=== PATIENT | male | born 1930 | race Caucasian/White ===

== ENCOUNTER → 2017-02-16 | Outpatient (CLI) | payer OTHER ==
[~2017-02-16] MED LIST: AMLO-110 PO; ASPI1CHW12 PO; CHOLCAP10 PO; FOLI1TAB7 PO; LANS15CA27 PO; LOSA100T33 PO; MAGNTAB4 PO; METH1CHW; MULT-506 PO; NITR0.4S UT; PYRI1TAB30; SOTA120T6 PO
--- NOTE | 2017-02-16 16:16 | DIAGNOSTIC IMAGING REPORT ---
MRI OF THE LUMBAR SPINE WITHOUT IV CONTRAST CLINICAL HISTORY: Chronic low back pain. Left lower extremity radiculopathy. COMPARISON STUDY: MRI of the lumbar spine dated 01/24/2015. TECHNIQUE: MRI of the lumbar spine is performed utilizing various T1 and T2-weighted sequences in the axial and sagittal planes. IV contrast was not administered for this examination. FINDINGS: Lumbar spine: Vertebral body height is maintained throughout the lumbar spine. There is minimal anterolisthesis at L3-L4 and L4-L5. Alignment is otherwise preserved. Small anterior osteophytes are seen throughout. Chronic degenerative endplate change is seen at L1-L2, L3-L4, L4-L5, and L5-S1. Mild endplate edema is present at L5-S1. The transverse processes appear intact. There are postoperative changes from laminectomy seen at L4. No destructive bony lesion is identified. There is no evidence of spondylolysis. Intervertebral discs: There is degenerative disc desiccation and loss of height seen throughout the lumbar spine. Loss of height is [id number] from L4-L5 through L5-S1. Spinal cord: The partially imaged spinal cord is normal in morphology and signal intensity. The conus medullaris terminates at the level of L1. The nerve roots of the cauda equina are normal in morphology. T12-L1: Unremarkable. L1-L2: There is a small posterior disc bulge eccentric to the left with annular fissure. The central canal appears patent. There is left-sided subarticular stenosis, with possible impingement on the exiting left L1 nerve root. Facet arthropathy causes minimal left neural foraminal stenosis. L2-L3: There is a small posterior disc bulge. The central canal and neural foramina appear patent. There is mild bilateral subarticular stenosis. Facet arthropathy is of no consequence. L3-L4: There is minimal posterior disc bulge. The central canal is clear. There is mild bilateral subarticular stenosis. Facet arthropathy causes mild right greater than left neural foraminal stenosis. L4-L5: There is a posterior disc bulge eccentric to the right with annular fissure. There is no significant acquired compromise of the central canal. There is moderate right-sided subarticular stenosis, with probable impingement on the exiting right L4 nerve root. Bulky facet arthropathy causes moderate left and mild right neural foraminal stenosis. L5-S1: There is minimal posterior disc bulge. The central canal is widely patent. Facet arthropathy causes mild left greater than right neural foraminal stenosis. Sacrum: Partially imaged sacrum is normal in morphology and signal intensity. 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 Soft tissues: Postoperative change is noted posteriorly at the level of L4. Mild fatty atrophy is observed in the paraspinous musculature. The partially imaged retroperitoneal structures are grossly unremarkable but incompletely assessed. IMPRESSION: 1. There is no large disc herniation or central canal stenosis. 2. Multilevel lumbosacral spondylosis as above. See discussion for detailed [id number] analysis. 3. Degenerative disc disease with multilevel degenerative endplate change as above. No destructive bony lesion is identified. 4. Postoperative changes from L4 laminectomy are noted and new from the 01/24/2015 examination. Dictated: 02/16/2017 3:46 PM Transcribed: 02/16/2017 4:15 PM Kit Electronically signed by: Brian Fu M.D. 02/16/2017 4:37 PM Dictated Date/Time: 02/16/2017 3:46 PM
== END | disposition home or self-care (01) ==
LOC: C.MRIBC 15:03
PROVIDERS: ATTEND Internal Medicine
DX: M48.06 Spinal stenosis, lumbar region (principal)

== ENCOUNTER → 2017-02-22 | Outpatient (CLI) | payer OTHER, BC | END | disposition home or self-care (01) | LOC: C.PATHSPEC 16:19 | PROVIDERS: ATTEND Dermatology | DX: L82.1 Other seborrheic keratosis (principal) ==

== ENCOUNTER → 2017-06-09 | Outpatient (CLI) | payer OTHER ==
[~2017-06-09] MED LIST changes: +LOSA100T26 PO; -LOSA100T33 PO
== END | disposition home or self-care (01) ==
LOC: C.PATHSPEC 17:03
PROVIDERS: ATTEND Dermatology
DX: L11.0 Acquired keratosis follicularis (principal); L57.0 Actinic keratosis

== ENCOUNTER → 2017-08-31 | Outpatient (CLI) | payer OTHER ==
[~2017-08-31] MED LIST changes: -LOSA100T26 PO; +LOSA100T33 PO
== END | disposition home or self-care (01) ==
LOC: C.PATHSPEC 17:43
PROVIDERS: ATTEND Dermatology
DX: L57.0 Actinic keratosis (principal)

== ENCOUNTER 2017-09-30 10:35 | Emergency (ER) | payer OTHER ==
[~2017-09-30] VITALS: Ht 170.2 cm; Wt 80.5 kg
[~2017-09-30 10:35] MED LIST changes: -FOLI1TAB7 PO; +FOLI1TAB8 PO
[2017-09-30 10:43] VITALS: TEMP 36.4; Ht 170.2 cm; Wt 80.5 kg
--- NOTE | 2017-09-30 11:40 | DIAGNOSTIC IMAGING REPORT ---
HEAD WITHOUT CONTRAST (CT) CLINICAL HISTORY: 87 years-old Male presenting with head injury, fall, laceration on the posterior head. TECHNIQUE: Multidetector CT imaging of the head was performed without the use of intravenous contrast. IV contrast: None. A dose lowering technique was used consistent with the principles of ALARA (as low as reasonably achievable). COMPARISON: MR brain from 2007. CT DOSE (mGy.cm): The estimated cumulative dose is 614.27 mGy.cm. FINDINGS: [employer] T[employer] Line topogram: Unremarkable. Ventricles and sulci normal in size. Brain parenchyma normal in appearance with preserved eddy-white differentiation. No mass effect or midline shift. No hemorrhage or acute territorial infarct. No extra-axial fluid collection. Partial opacification of anterior ethmoid air cells. Minimal soft tissue irregularity and infiltration along the left occiput consistent with laceration and contusion. Calvarium intact. IMPRESSION: 1. No acute intracranial abnormality. 2. Superficial soft tissue laceration and contusion in the left occiput. Electronically signed by: Po Clayton M.D. 09/30/2017 11:38 AM Dictated Date/Time: 09/30/2017 11:34 AM
--- NOTE | 2017-09-30 11:54 | EMERGENCY ROOM VISIT NOTE ---
History Report prepared by Otilia: Bola Rivas Under the Supervision of: Dr. Italo Ortega D.O. First contact with patient: 10:52 Chief Complaint: LACERATION/CUT (SUT/DERMABOND) Stated Complaint: CUT ON HEAD Nursing Triage Summary: Patient reports "Snowblowing. Fell and struck the back of my head." Laceration to occipital head. History of Present Illness The patient is a 87 year old male who presents to the Emergency Room with complaints of a posterior head injury s/p fall occurring just prior to arrival. He states that he was taking a shower when he slipped and fell. He states that he struck the back of his head. The patient notes that he had just finished snow blowing. He did not lose consciousness during the fall. He denies any headache. Source of History: patient Onset: Just prior to arrival Position: head (posterior) Quality: other (head injury) Timing: other (episode) Associated Symptoms: No LOC, No headache Review of Systems See HPI for pertinent positives & negatives. A total of 10 systems reviewed and were otherwise negative. Past Medical & Surgical Medical Problems: (1) Paroxysmal a-fib Family History FHx: cancer FHx: heart disease Social History Smoking Status: Former Smoker Alcohol Use: occasionally Marital Status: Housing Status: lives with significant other Current/Historical Medications Scheduled Amlodipine (Norvasc), 5 MG PO DAILY Aspirin (Aspirin 81 Low Dose), 2 TABS PO DAILY Cholecalciferol (D 5000), 1 TAB PO DAILY Folic Acid (Folvite), 1 TAB PO DAILY Hctz/Losartan (Hyzaar 12.5MG/100MG), 1 TAB PO DAILY Lansoprazole (Prevacid), 15 MG PO QPM Magnesium Chloride (Slow-Mag Tab), 145 MG PO DAILY Methylcobalamin ([id number]), 1 TAB DAILY Multivitamin (Multivitamin), 1 TAB PO QAM Nitroglycerin (Nitrostat), 0.4 MG UT PRN Pyridoxine HCl (B6 Natural), 1 TAB DAILY Sotalol Hcl (Afib/Afl) (Sotalol Hcl (Af)), 120 PO Q12 Allergies Coded Allergies: No Known Allergies (Unverified , 03/19/15) Physical Exam Vital Signs Date Time Temp Pulse Resp B/P (MAP) Pulse Ox O2 Delivery O2 Flow Rate FiO2 09/30/17 10:43 36.4 76 18 172/84 95 Room Air Physical Exam CONSTITUTIONAL/VITAL SIGNS: Reviewed / noted above. GENERAL: Non-toxic in appearance. INTEGUMENTARY: Warm, dry, and [place]. HEAD: Normocephalic. 3 cm laceration to the posterior scalp. EYES: without scleral icterus or trauma. ENT/OROPHARYNX: clear and moist. LYMPHADENOPATHY/NECK: Is supple without lymphadenopathy or meningismus. RESPIRATORY: Lungs clear and equal. CARDIOVASCULAR: Regular rate and rhythm. GI/ABDOMEN: Soft and nontender. No organomegaly or pulsatile mass. No rebound or guarding. Normal bowel sounds. EXTREMITIES: Warm and well perfused. BACK: No CVA tenderness. NEUROLOGICAL: Intact without focal deficits. PSYCHIATRIC: normal affect. MUSCULOSKELETAL: Normally developed with good muscle tone. Medical Decision & Procedures ER Provider Diagnostic Interpretation: Radiology results as stated below per my review and radiologist interpretation: HEAD WITHOUT CONTRAST (CT) FINDINGS: [employer] Systems Operations Manager topogram: Unremarkable. Ventricles and sulci normal in size. Brain parenchyma normal in appearance with preserved eddy-white differentiation. No mass effect or midline shift. No hemorrhage or acute territorial infarct. No extra-axial fluid collection. Partial opacification of anterior ethmoid air cells. Minimal soft tissue irregularity and infiltration along the left occiput consistent with laceration and contusion. Calvarium intact. IMPRESSION: 1. No acute intracranial abnormality. 2. Superficial soft tissue laceration and contusion in the left occiput. Electronically signed by: Po Clayton M.D. 09/30/2017 11:38 AM Procedure Location: Scalp Total length: 3 cm Complexity: Simple Verbal consent was obtained after the risks and benefits were explained, including but not limited to bleeding, scarring, infection, pain, and bone/ nerve damage. At this time, the risks of the procedure are less than the risks of NOT performing the procedure. A time out was taken and the correct patient and site identified. The scalp was prepped with betadine. The wound was explored for foreign bodies and none found. Debridement was not performed. The wound edges were approximated using 2 surgical efrain in the standard fashion. Hemostasis and excellent approximation was achieved. Antibacterial ointment and a sterile dressing applied. Detailed wound care instructions and signs and symptoms of infection reviewed with the patient. No complications and the patient tolerated the procedure well. ED Course 1059: Previous medical records were reviewed. The patient was evaluated in room D3B. A complete history and physical examination was performed. 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 He states that he will return for any concerning symptoms of subdural hematoma. 1103: I repaired the patient's scalp laceration. See the procedure note for details. 1115: The patient began to feel dizzy, and requested a head CT. 1155: On reevaluation, the patient is resting comfortably. I discussed the results and findings with the patient. He verbalized agreement of the treatment plan. The patient was discharged home. Medical Decision Differential includes close head injury, intracranial bleed, facial trauma, cervical spine trauma, chest and thoracic trauma, abdominal and intra-abdominal trauma, spine neurologic trauma, extremity trauma. This is an 87-year-old male who presents to the ED with a chief complaint of laceration to the back of his head. He slipped in his tub and hit the back of his head. He initially declined a CT scan of the head but then agreed. CT scan the brain did not show any acute process. The patient's wound was approximated and stable with 2 efrain. He was felt to be stable for discharge. Medication Reconcilliation Current Medication List: was personally reviewed by me Blood Pressure Screening Patient's blood pressure: Elevated blood pressure Blood pressure disposition: Referred to PCP Impression Primary Impression: Laceration of scalp Scribe Attestation The scribe's documentation has been prepared under my direction and personally reviewed by me in its entirety. I confirm that the note above accurately reflects all work, treatment, procedures, and medical decision making performed by me. Departure Information Dispostion Home / Self-Care Referrals No Doctor, Assigned (PCP) Forms HOME CARE DOCUMENTATION FORM, IMPORTANT VISIT INFORMATION Patient Instructions My [facility] Additional Instructions Have efrain removed in 10 days. Watch for infection. Return for CT scan of the head if you develop headaches, nausea/vomiting, excessive drowsiness or other concerning symptoms.
[2017-09-30] MEDS ORDERED: PYRI100T4 PO (12:03)
[2017-09-30] MEDS ORDERED: AMLO2.5T PO (12:03)
[2017-09-30] MEDS ORDERED: SLWMEC PO (12:03)
[2017-09-30] MEDS ORDERED: HYZ/50125 PO (12:03)
[2017-09-30] MEDS ORDERED: TPRSR/25 PO (12:03)
[2017-09-30] MEDS ORDERED: CYAN1SUB12 PO (12:03)
[2017-09-30 12:07] VITALS: BP 141/74; PULSE 80; O2SAT 98
== END 2017-09-30 12:08 | disposition home or self-care (01) ==
LOC: C.EDB 10:36 → C.EDD 12:08
DX: S01.01XA Laceration without foreign body of scalp, initial encounter (principal); W18.2XXA Fall in (into) shower or empty bathtub, initial encounter; Y93.E1 Activity, personal bathing and showering; I48.0 Paroxysmal atrial fibrillation; Z87.891 Personal history of nicotine dependence; Z79.82 Long term (current) use of aspirin; Z79.899 Other long term (current) drug therapy

== ENCOUNTER → 2017-11-08 | Outpatient (CLI) | payer OTHER ==
[~2017-11-08] MED LIST changes: -AMLO-110 PO; +AMLO2.5T PO; +CYAN1SUB12 PO; +HYZ/50125 PO; -LOSA100T33 PO; -MAGNTAB4 PO; -METH1CHW; +PYRI100T4 PO; -PYRI1TAB30; +SLWMEC PO; -SOTA120T6 PO; +TPRSR/25 PO
== END | disposition home or self-care (01) ==
LOC: C.PATHSPEC 16:19
PROVIDERS: ATTEND Dermatology
DX: L57.0 Actinic keratosis (principal)

== ENCOUNTER → 2017-11-29 | Outpatient (CLI) | payer OTHER | END | disposition home or self-care (01) | LOC: C.PATHSPEC 13:56 | PROVIDERS: ATTEND Dermatology | DX: C44.42 Squamous cell carcinoma of skin of scalp and neck (principal) ==

== ENCOUNTER → 2017-12-11 | Outpatient (CLI) | payer OTHER | END | disposition home or self-care (01) | LOC: C.LAB 11:51 | PROVIDERS: ATTEND Internal Medicine | DX: I48.0 Paroxysmal atrial fibrillation (principal); R60.0 Localized edema; R19.8 Other specified symptoms and signs involving the digestive system and abdomen ==

== ENCOUNTER → 2018-01-06 | Outpatient (CLI) | payer OTHER | END | disposition home or self-care (01) | LOC: C.PATHSPEC 10:32 | PROVIDERS: ATTEND Plastic Surgery | DX: C44.42 Squamous cell carcinoma of skin of scalp and neck (principal); L90.5 Scar conditions and fibrosis of skin ==

== ENCOUNTER → 2018-05-27 | Outpatient (CLI) | payer OTHER ==
[~2018-05-27] MED LIST changes: +GABA-1220 PO; -NITR0.4S UT; +RANI150T3 PO
--- NOTE | 2018-05-27 08:27 | DIAGNOSTIC IMAGING REPORT ---
ABD/PELVIS ORAL CONT ONLY CLINICAL HISTORY: 87 years-old Male presenting with ABD PAIN, CONSTIPATION, BRADYKINESIA. TECHNIQUE: Multidetector CT of the abdomen and pelvis was performed after the administration of oral contrast only. IV contrast: None. A dose lowering technique was used consistent with the principles of ALARA (as low as reasonably achievable). COMPARISON: None. CT DOSE (mGy.cm): The estimated cumulative dose is 749.12 mGycm. FINDINGS: Foster Care Social Worker topogram: Median sternotomy wires. Surgical clips project over the pelvis. Lung bases: Minimal opacity at the left lower lobe, likely atelectasis or scarring. Epicardial pacing wire noted. Coronary artery and mitral annular calcification. Normal heart size. No pericardial or pleural effusion. 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 Normal liver density. Biliary: No gross biliary ductal dilatation allowing for noncontrast technique. Normal gallbladder. Pancreas: Mild parenchymal atrophy. Spleen: Normal noncontrast appearance. Adrenal glands: Normal noncontrast appearance. Kidneys and ureters: Renal vascular calcification noted. Additionally, punctate nonobstructing calculus at the lower pole of the left kidney. Well-defined hypodensities in the kidneys indeterminate but likely cysts. No hydronephrosis. Normal ureters. Bladder: Circumferential bladder wall thickening. Pelvic organs: Post surgical changes of prostatectomy. Evaluation of the ureteral anastomosis limited without intravenous contrast. Bowel: Normal. No bowel obstruction. Peritoneal cavity: No free fluid or intraperitoneal gas. Lymph nodes: No gross lymphadenopathy allowing for noncontrast technique. Evidence of prior lymphadenectomy in the iliac regions. Vasculature: Atherosclerosis of the normal caliber abdominal aorta. Abdominal wall: Fat-containing left inguinal hernia. Smaller fat-containing right inguinal hernia may also be present. Varicoceles suggested. Postsurgical changes of the infraumbilical abdominal wall. Musculoskeletal: Degenerative changes of the spine. Postsurgical changes of L4 laminectomy. Degenerative changes of the pubic symphysis. No destructive osseous lesion. However, a sclerotic lesion is noted in the lateral left eighth rib (series 3 image 48). IMPRESSION: 1. Sclerotic lesion in the lateral left eighth rib. 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 2. Postsurgical changes of prostatectomy. 3. No acute intra-abdominal pathology. No significant stool burden. 4. Nonobstructing punctate left renal calculus. Electronically signed by: oP Clayton M.D. 05/27/2018 8:26 AM Dictated Date/Time: 05/27/2018 8:18 AM
== END | disposition home or self-care (01) ==
LOC: C.CTS 07:45
PROVIDERS: ATTEND Internal Medicine
DX: N20.0 Calculus of kidney (principal); R25.8 Other abnormal involuntary movements